=== PATIENT | female | born 1980 | race Caucasian/White ===

== ENCOUNTER → 2018-01-20 09:47 | Outpatient (CLI) | payer OTHER, SELFPAY ==
[2018-01-20 10:58] LABS: Microalbumin,Random Urine 12.6 mg/L (NO RANGE EST.); Microalbumin:Creatinine Ratio 12.6 mg/g CRE (<30 mg/g CRE)
[2018-01-20 11:16] LABS: ALB/GLOB Ratio 0.9 RATIO (0.9-2.4); AST(SGOT) 15 U/L (15-37); Alanine Aminotransfer ALT/SGPT 17 U/L (13-56); Albumin, Serum 3.5 g/dL (3.2-5.0); Alkaline Phosphatase 55 U/L (45-117); Anion Gap 8 (5-15); BUN 12 mg/dL (7-18); BUN/Creat Ratio 18.6 RATIO (10-20); Calcium,Total 8.4 mg/dL (8.5-10.1); Chloride 105 mmol/L (98-107); Cholesterol 155 mg/dL (200); Creatinine, Serum 0.65 mg/dL (0.55-1.02); EST Glomerular Filtration Rate 111 mL/min (>60); Est Glom Filt Rate - Afr Amer 134 mL/min (>60); Globulin 3.9 g/dL (2.2-4.2); Glucose 72 mg/dL (74-106); High Density Lipoprotein 85 mg/dL; Potassium 4.1 mmol/L (3.5-5.1); Protein, Total 7.4 g/dL (6.4-8.2); Sodium Level 140 mmol/L (136-145); Thyroid Stim Hormone (TSH) 1.23 uIU/mL (0.358-3.74); Triglycerides 47 mg/dL; Very Low Density Lipoprotein 9 mg/dL (5-40)
== END ==
PROVIDERS: Visit Provider Internal Medicine Endocrinology, Diabetes & Metabolism
DX: E10.9 Type 1 diabetes mellitus without complications (principal); E78.00 Pure hypercholesterolemia, unspecified; E04.0 Nontoxic diffuse goiter
CPT/HCPCS: 36415; 80053; 80061; 82043; 82570; 84443

== ENCOUNTER 2018-02-03 06:06 | Day surgery (SDC) | payer OTHER, SELFPAY ==
[2018-01-29 11:07] LABS: Hematocrit 32.5 % (37-47); Mean Corp Hgb Conc 30.8 g/gl (32-36); Mean Corpuscular Hgb 23.5 pg (27.0-32.0); Mean Corpuscular Volume 76.3 fL (81-99); Mean Platelet Vol. 9.4 fl (6.2-12.0); Platelet Count 272 K/mm3 (150-450); RBC Distribution Width CV 14.4 % (11.6-14.6); RBC Distribution Width SD 39.2 fl (35.1-43.9); Red Blood Count 4.26 M/mm3 (4.2-5.4); White Blood Count 5.4 K/mm3 (4.4-11.0)
[2018-01-29 11:08] LABS: International Normalized Ratio 1.1; Prothrombin Time (Protime)PT. 13.8 SECONDS (11.7-14.9)
[2018-01-29 11:09] LABS: Partial Thromboplast Time 33.8 Seconds (24.1-36.2)
[2018-01-29 11:13] LABS: Scan Indicated on CBC? Y/N NO
--- NOTE | 2018-02-02 21:07 | PCM.HP.BLA ---
History and Physical Date of Admission: 02/03/18 Surgical History and Physical Felicia Lopez, a 37 year old female 2 0 0 0 2, presents for HTA, Hysteroscopy and D and C on January at 7:30. -- Menorrhagia -- heavy menses x 5 years since having first child, and seems to be worsening. 37 y.o. G 2 P 2 non-smoker with LMP of 12-01-17 being heavy and lasting her average of 7 days. Reports she has been having a lot of moodiness and craziness the week prior to and the first couple days of her menses and hoping to have something to help her with the heavy bleeding and the emotions. History of BTO for control. Heavy menses which began menorrhea x 5 yrs. Felicia claims it started gradually and has been present periods worsening/symptoms worsening. It occurs during her menses and 1 week before. It is located in the vagina. Felicia characterizes the quality very geller, heavy bleeding. 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 Has Type I DM. MEDICATIONS HISTORY: Patient is also takin. insulin pump syringe 3 mL Misc 2. Rhofade 1 % topical cream, As Directed 3. Soolantra 1 % topical cream, As Directed ALLERGIES: NKDA Infections - Chicken pox Illnesses - Type I diabetes Accidents - None Hospitalizations - Childbirth, appendectomy, kidney stone removal x 2 and Type I DM age 16 Kidney stones; Review of Systems: GENERAL - Denies fever, or chills SKIN - Denies skin changes EYES - Denies visual changes EARS - Denies difficulty hearing NOSE - Denies nasal congestion or bleeding MOUTH - Denies sore throat or difficulty swallowing NECK - Denies pain or swelling RESPIRATORY - Denies shortness of breath or wheezing CARDIOVASCULAR - Denies palpitations or chest pain GASTROINTESTINAL - Denies nausea, vomiting, diarrhea, constipation GENITOURINARY - heavy menses MUSCULOSKELETAL - Denies joint or muscle pain NEUROLOGICAL - Denies localized numbness or weakness PSYCHIATRIC - Denies depression or anxiety ENDOCRINE - Denies heat or cold intolerance, weight loss or gain; has type I DM HEMATO-IMMUNOLOGIC - Denies excessive bleeding with cuts SOCIAL HISTORY: Alcohol Use - None Smoking - Never Diet - balanced Diet Lifestyle - low stress lifestyle and Exercise - minimal Seat Belt Use - always 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 MENSTRUAL HISTORY: LMP Known?- Definite Amount/Duration - 7 days, Regularity - Regular, Frequency - 30 days, LMP - 01/02/18, Age Onset Menarche - 13 PAST PREGNANCIES: Total Pregnancies - 2; Full Term Pregnancies - 2; Premature - 0; Abortions, Induced - 0; Abortions, Spontaneous - 0; Ectopics - 0; Multiple Births - 0; Living Children - 2 SURGICAL HISTORY: 1. 02/13/2013 ; Dr. Zapien 2. 08/05/2009 ; - Failed induction, 39 weeks, TYPE I DM 3. 02/23/2010 Appendectomy ; - appendicitis 4. 12/26/2002 lithotripsy ; - kidney stones 5. 01/26/2003 Lithotripsy ; - kidney stones 6. 10/28/1995 T and A PHYSICAL EXAM BP- 128/70 Sitting, Right arm, regular cuff Weight- 179.90735 lbs Height- 65.00 inch BMI:29.85 CONSTITUTIONAL - NAD, well nourished, and well developed SKIN - No rash, lesions, or ulcers HEENT - Normocephalic, PERRLA, EOMI NECK - No nodes, no nuchal rigidity and thyroid normal size and texture LYMPH NODES - Palpation of lymph nodes in neck and groins within normal limits LUNGS - CTA x2 without wheezes, crackles or rales CARDIAC - Regular rate and rhythm without rubs, murmurs, or gallops BREAST - No dominant masses, no tenderness, no axillary adenopathy, no nipple discharge, no skin changes ABDOMEN - Without hepatosplenomegaly, distention, masses, rebound, or guarding; normal bowel sounds; no hernias EXTREMITIES - No edema or calf tenderness NEUROLOGICAL - Cranial nerves II-XII grossly intact PSYCHIATRIC - A and O to time, place, person, mood and affect DETAILED PELVIC EXAM External Genital Vagina - non-tender without lesions Urethra/Urethral Meatus - non-tender Bladder - non-tender Vagina - vaginal herman are pink and moist without loss of rugae and no evidence of atropy Cervix - without cervical motion tenderness and has normal size and features without evident lesions Uterus - multiparous size 6 cm & wt 75-125 g Adnexa - clear without masses or tenderness ASSESSMENT/PLAN: 1. Menorrhagia Discussed D and C, H/S and HTA including RBAs and all questions answered.
[2018-02-03 06:32] VITALS: BP 111/70; PULSE 75; RESP 16; TEMP 36.6; O2SAT 100; BMI 28.6
[2018-02-03 07:01] LABS: Bedside Glucose 144 mg/dL (70-110)
--- NOTE | 2018-02-03 07:27 | OP.PCM_ITS ---
Operative Report Date of Procedure: 02/03/18 Surgeon: Thien Carrillo MD, FACOG Anesthesia: Darío Carrillo MD Type of anesthesia: General Endotracheal Procedure: Diagnostic Hysteroscopy, Dilation and Curettage, Hydrothermal Ablation Pre-op: Menorrhagia Post-Op: Menorrhagia Findings: 8 cm EM cavity with normal-appearing endometrium; no polyps or fibroids noted Indication: This is a 37 year old patient who has been having problems with extremely heavy menses. Conservative measures have not been helpful. Endometrial sampling was benign and pelvic ultrasound showed that ablation may be helpful. Pt has been counseled regarding the risks, benefits and alternatives of this procedure and all questions answered. She understands that only about half of patients will have amenorrhea after this procedure. Procedure: Patient taken to the operating room where after induction of general anesthesia the patient was prepped and draped in the usual sterile fashion. Bladder was drained of urine with a catheter. Anterior cervix grasped and cervix was dilated to about 17 Algerian size. Hysteroscopic hydrothermal ablation (HTA) unit was place in the cervix and the above findings were noted. HTA unit was removed and the uterus was gently curretted removing all contents. An HTA ablation cycle was then carried out at about 90 degrees Centigrade for 10 minutes with virtually no fluid loss during the procedure. After an appropriate cool down the HTA unit was removed with minimal bleeding noted. The patient tolerated the procedure well and was taken to the recovery room in satisfactory condition. Sponge, instruments and needle counts were all correct. There were no apparent complications of the surgery. Ancef 2 gms IV was given prior to the procedure. Estimated Blood Loss: Minimal Specimen to Pathology: Endometrial Curettings
--- NOTE | 2018-02-03 07:27 | PCM.DC.D&C ---
Discharge Diet: No Restrictions Discharge Activity: Return to Normal Activity, May Shower, May Take a Tub Bath May resume sexual activity in: 4 weeks Call your doctor if you observe: Fever of 101 or Higher, Inability to urinate, Inability to have a bowel movement, Using more than one pad per hour Allergies/Adverse Reactions: Allergies No Known Allergies Allergy (Verified 01/27/18 10:58) Medications to take at Discharge Insulin Aspart [Novolog] 1,000 unit CONT INF X1 01/27/18 Hydrocodone/Acetaminophen [[place] 5-325 Tablet] 1 ea PO Q4H PRN PRN 7 Days #10 tab 02/03/18 Oxymetazoline HCl [Rhofade] 30 gm TP DAILY 02/03/18 The following prescriptions were given: Hydrocodone/Acetaminophen [[place] 5-325 Tablet] 1 ea PO Q4H PRN PRN 7 Days #10 tab PRN Reason: Severe Pain (-08/06) Primary Care Physician: Care Physician,No Primary [Primary Care Provider] - Please Follow Up With: Thien Carrillo MD When: 3-4 weeks
--- NOTE | 2018-02-03 07:30 | DCINST_ITS ---
Discharge Diet: No Restrictions Discharge Activity: Return to Normal Activity, May Shower, May Take a Tub Bath May resume sexual activity in: 4 weeks Call your doctor if you observe: Fever of 101 or Higher, Inability to urinate, Inability to have a bowel movement, Using more than one pad per hour Allergies/Adverse Reactions: Allergies No Known Allergies Allergy (Verified 01/27/18 10:58) Medications to take at Discharge Insulin Aspart [Novolog] 1,000 unit CONT INF X1 01/27/18 Hydrocodone/Acetaminophen [Branch 5-325 Tablet] 1 ea PO Q4H PRN PRN 7 Days #10 tab 02/03/18 Oxymetazoline HCl [Rhofade] 30 gm TP DAILY 02/03/18 The following prescriptions were given: Hydrocodone/Acetaminophen [Branch 5-325 Tablet] 1 ea PO Q4H PRN PRN 7 Days #10 tab PRN Reason: Severe Pain (-08/06) Primary Care Physician: Care Physician,No Primary [Primary Care Provider] - Please Follow Up With: Thien Carrillo MD When: 3-4 weeks
--- NOTE | 2018-02-03 07:30 | EMB_PTH ---
PATIENT: MONET VILLARREAL LOC: [facility] [place] U#:[id number] AGE/SX: 37/F ROOM: RE02/03/[address]: Dr. Thien Carrillo MD : 1980 BED: DIS: 02/03/2018 SPEC #: [id number] RECD: 02/03/18 13:05 STATUS: ROSE CYNDY #: [id number] VERO: 02/03/18 07:[address]: Thien Carrillo DEPT: SURGICAL PATHOLOGY RECD BY: Amando Reed ENTERED: 02/03/18 13:05 SP TYPE: ENDOM BX/C MARCELO DR: No Primary Care Phys Tissues: Endometrium, NOS Procedures: Surgery Specimen Level IV HEADER OPERATION: Hysteroscopy, hydroablation, D & C PRE-OP DIAGNOSIS: Menorrhagia TISSUE SUBMITTED: Endometrial curettings MICROSCOPIC DIAGNOSIS Endometrium, curettings: Secretory endometrium. Glandular and stromal breakdown. AM:patricia 4/10/18 MICROSCOPIC DESCRIPTION Slides are reviewed. GROSS DESCRIPTION Received in fixative is one container labeled with the patient's name and designated endometrial curettings. The specimen consists of multiple fragments of hemorrhagic soft tissue mixed with blood clot that in aggregate measure 7.5 x 3 x 0.3 cm. The entire specimen is submitted in three cassettes. / SJ:rg 02/03/18 TC:5 CPT: 18149
[2018-02-03] MEDS: Cefazolin 2 GM in 0.9% Normal Saline 100 ML IV (07:32)
[2018-02-03 08:12] VITALS: BP 111/70; BP 121/76; PULSE 68; RESP 16; TEMP 36.4; O2SAT 98
[2018-02-03 08:15] VITALS: BP 111/70; BP 133/97; PULSE 68; RESP 16; O2SAT 97
[2018-02-03 08:30] VITALS: BP 111/70; BP 119/77; PULSE 73; RESP 16; O2SAT 100
[2018-02-03 08:30] LABS: Bedside Glucose 116 mg/dL (70-110)
[2018-02-03 08:41] VITALS: BP 111/70; BP 120/73; PULSE 65; RESP 16; TEMP 36.3; O2SAT 100
[2018-02-03 10:24] VITALS: BP 111/62; BP 111/70; PULSE 55; RESP 18; TEMP 36.7; O2SAT 100
== END 2018-02-03 10:33 | disposition home or self-care (01) ==
LOC: SDC 06:08 → AC 06:09
PROVIDERS: Visit Provider Obstetrics & Gynecology
PROC: 0U5B8ZZ Destruction of Endometrium, Via Natural or Artificial Opening Endoscopic (ICD-10-PCS; CPT 58563; principal; 2018-02-03 07:15)
DX: N92.0 Excessive and frequent menstruation with regular cycle (principal); E10.9 Type 1 diabetes mellitus without complications; Z96.41 Presence of insulin pump (external) (internal); Z98.51 Tubal ligation status
CPT/HCPCS: 58563; 36415; 82962; 85027; 85610; 85730; 86850; 86900; 88305; J7120; J2405

== ENCOUNTER → 2019-03-10 09:17 | Outpatient (CLI) | payer OTHER, SELFPAY ==
[2019-03-10 10:21] LABS: Hematocrit 40.3 % (37-47); Hemoglobin 13.8 g/dl (12.0-15.0); Lymphocyte % 28.1 % (19-41); Mean Corp Hgb Conc 34.2 g/gl (32-36); Mean Corpuscular Hgb 30.8 pg (27.0-32.0); Mean Platelet Vol. 9.7 fl (6.2-12.0); Monocyte% 8.6 % (0-10); Platelet Count 333 K/mm3 (150-450); RBC Distribution Width CV 12.6 % (11.6-14.6); Red Blood Count 4.48 M/mm3 (4.2-5.4); White Blood Count 5.6 K/mm3 (4.4-11.0)
[2019-03-10 10:22] LABS: Absolute Lymphocyte Count 1.56 X10^3/ul (0.83-4.51); Absolute Neutrophil Count 3.4 X10^3/uL (2.0-7.7); Basophil# 0.03 X10^3/uL; Basophil% 0.5 % (0-1); Eosinophil# 0.09 X10^3/uL; Eosinophils% 1.6 % (0-5); Lymphocyte # 1.56 X10^3/ul (4.0); Monocyte# 0.48 X10^3/uL; Neutrophil # 3.38 X10^3/uL (2.7-7.7)
[2019-03-10 10:25] LABS: POSITIVE COUNT NO; POSITIVE DIFFERENTIAL NO; POSITIVE MORPHOLOGY NO
[2019-03-10 10:45] LABS: Microalbumin,Random Urine < 5.0 mg/L (NO RANGE EST.)
[2019-03-10 11:00] LABS: Vitamin B12 228 pg/mL (211-911)
[2019-03-10 11:14] LABS: ALB/GLOB Ratio 1.1 RATIO (0.9-2.4); AST(SGOT) 16 U/L (15-37); Alanine Aminotransfer ALT/SGPT 18 U/L (13-56); Albumin, Serum 3.9 g/dL (3.2-5.0); Alkaline Phosphatase 75 U/L (45-117); Anion Gap 6 (5-15); BUN 10 mg/dL (7-18); BUN/Creat Ratio 14.4 RATIO (10-20); Calcium,Total 8.4 mg/dL (8.5-10.1); Chloride 104 mmol/L (98-107); Cholesterol 161 mg/dL (200); EST Glomerular Filtration Rate 101 mL/min (>60); Est Glom Filt Rate - Afr Amer 122 mL/min (>60); Globulin 3.7 g/dL (2.2-4.2); Glucose 72 mg/dL (74-106); High Density Lipoprotein 77 mg/dL; Protein, Total 7.6 g/dL (6.4-8.2); Sodium Level 137 mmol/L (136-145); Thyroid Stim Hormone (TSH) 0.84 uIU/mL (0.358-3.74); Triglycerides 61 mg/dL; Very Low Density Lipoprotein 12 mg/dL (5-40)
== END ==
PROVIDERS: Referring Provider Internal Medicine Endocrinology, Diabetes & Metabolism; Visit Provider Internal Medicine Endocrinology, Diabetes & Metabolism
DX: E10.9 Type 1 diabetes mellitus without complications (principal); E78.2 Mixed hyperlipidemia; E04.0 Nontoxic diffuse goiter; D64.9 Anemia, unspecified; E53.9 Vitamin B deficiency, unspecified
CPT/HCPCS: 36415; 80053; 80061; 82043; 82570; 82607; 84443; 85025

== ENCOUNTER → 2020-03-29 06:58 | Outpatient (CLI) | payer OTHER, SELFPAY ==
[2020-03-29 08:06] LABS: Microalbumin,Random Urine 8.6 mg/L (NO RANGE EST.)
[2020-03-29 08:12] LABS: ALB/GLOB Ratio 0.9 RATIO (0.9-2.4); AST(SGOT) 19 U/L (15-37); Alanine Aminotransfer ALT/SGPT 24 U/L (13-56); Albumin, Serum 3.6 g/dL (3.2-5.0); Alkaline Phosphatase 62 U/L (45-117); Anion Gap 8 (5-15); BUN 14 mg/dL (7-18); BUN/Creat Ratio 20.6 RATIO (10-20); Calcium,Total 8.8 mg/dL (8.5-10.1); Chloride 103 mmol/L (98-107); Cholesterol 180 mg/dL (200); Creatinine, Serum 0.68 mg/dL (0.55-1.02); EST Glomerular Filtration Rate 103 mL/min (>60); Est Glom Filt Rate - Afr Amer 125 mL/min (>60); Globulin 4.1 g/dL (2.2-4.2); Glucose 127 mg/dL (74-106); High Density Lipoprotein 73 mg/dL; Protein, Total 7.7 g/dL (6.4-8.2); Sodium Level 138 mmol/L (136-145); Thyroid Stim Hormone (TSH) 1.71 uIU/mL (0.358-3.74); Triglycerides 74 mg/dL; Very Low Density Lipoprotein 15 mg/dL (5-40)
== END ==
PROVIDERS: Referring Provider Internal Medicine Endocrinology, Diabetes & Metabolism; Visit Provider Internal Medicine Endocrinology, Diabetes & Metabolism
DX: E10.9 Type 1 diabetes mellitus without complications (principal); E78.2 Mixed hyperlipidemia; E04.0 Nontoxic diffuse goiter
CPT/HCPCS: 36415; 80053; 80061; 82043; 82570; 84443

== ENCOUNTER 2020-06-16 12:40 | Emergency (ER) | payer OTHER, SELFPAY ==
[2020-06-16 12:42] VITALS: BP 142/98; PULSE 80; RESP 16; TEMP 36.3; O2SAT 98; BMI 29.1
--- NOTE | 2020-06-16 13:44 | US_ITS ---
STUDY: ABDOMINAL ULTRASOUND - RIGHT UPPER QUADRANT REASON FOR VISIT: Female, 40 years old RUQ PAIN TECHNIQUE: Ultrasound evaluation of the right upper quadrant was performed with real-time and static pavon-scale imaging. TECHNICAL QUALITY: Adequate. COMPARISON: None. FINDINGS: Liver: The liver measures 16.2 cm. There is normal echogenicity of the liver. The bile ducts are within normal limits. There is hepatic color flow. The direction of portal flow is hepatopetal. There is no demonstrated mass lesion. Gallbladder: Normal distended gallbladder. The gallbladder wall measures 2 mm. There is a negative sonographic Glasgow''s sign. There is no pericholecystic fluid. There are no gallstones. Common Bile Duct (C.B.D.): The common bile duct measures 3 mm. Pancreas: Normal size of the head, body and tail of the pancreas. There is normal echogenicity of the pancreas. There is no demonstrated pancreatic mass or cyst. Right Kidney: Normal size of the right kidney. The right kidney measures 11.2 cm. Normal renal cortex. The right cortex measures 1.3 cm. There is no demonstrated renal mass or cyst. There is no right hydronephrosis. US/Gallbladder IMPRESSION: Normal right upper quadrant ultrasound examination. Electronically Signed: Quinton Thompson MD at 14:53 EDT Tel , Service support ,
[2020-06-16] MEDS: Ondansetron 4 MG/2 ML Vial IV (14:11)
[2020-06-16 14:18] LABS: Absolute Lymphocyte Count 1.29 X10^3/uL (0.83-4.51); Basophil# 0.03 X10^3/uL; Basophil% 0.7 % (0-1); Eosinophil# 0.18 X10^3/uL; Eosinophils% 4.5 % (0-5); Hematocrit 40.2 % (37-47); Hemoglobin 13.8 g/dL (12.0-15.0); Lymphocyte # 1.29 X10^3/ul (4.0); Mean Corp Hgb Conc 34.3 g/dL (32-36); Mean Corpuscular Hgb 31.3 pg (27.0-32.0); Mean Corpuscular Volume 91.2 fL (81-99); Mean Platelet Vol. 9.2 fl (6.2-12.0); Monocyte# 0.54 X10^3/uL; Monocyte% 13.4 % (0-10); NRBC Flagged by Analyzer 0 % (0-5); Neutrophil # 1.98 X10^3/uL (2.7-7.7); Neutrophil % 49.2 % (47-70); Platelet Count 299 K/mm3 (150-450); RBC Distribution Width CV 12.1 % (11.6-14.6); RBC Distribution Width SD 40.4 fl (35.1-43.9); Red Blood Count 4.41 M/mm3 (4.2-5.4)
[2020-06-16 14:24] LABS: Internal QC Validated? YES +Cl - CLEAR BKGD; Pregnancy, Serum, hCG Quali. NEGATIVE Negative
[2020-06-16 14:30] LABS: ALB/GLOB Ratio 0.9 RATIO (0.9-2.4); AST(SGOT) 20 U/L (15-37); Alanine Aminotransfer ALT/SGPT 21 U/L (13-56); Albumin, Serum 3.5 g/dL (3.2-5.0); Alkaline Phosphatase 68 U/L (45-117); Anion Gap 2 (5-15); BUN 7 mg/dL (7-18); BUN/Creat Ratio 9.1 RATIO (10-20); Calcium,Total 8.6 mg/dL (8.5-10.1); Chloride 107 mmol/L (98-107); Creatinine, Serum 0.77 mg/dL (0.55-1.02); EST Glomerular Filtration Rate 90 mL/min (>60); Est Glom Filt Rate - Afr Amer 108 mL/min (>60); Estimated Creatinine Clearance 89.14 ml/min; Globulin 3.8 g/dL (2.2-4.2); Glucose 104 mg/dL (74-106); Lipase 65 U/L (73-393); Potassium 3.9 mmol/L (3.5-5.1); Protein, Total 7.3 g/dL (6.4-8.2); Sodium Level 139 mmol/L (136-145)
--- NOTE | 2020-06-16 15:51 | ED.DEP ---
ED Disposition - Plan for ED Patient: Instructions: ED Abdominal Pain Unkn Cause Fem Prescriptions: Dicyclomine HCl [Bentyl] 20 mg PO TIDAC #20 cap Prescription Printed Famotidine [Pepcid] 20 mg PO BID #28 tab Prescription Printed Ondansetron [Zofran Odt] 4 mg PO Q8H PRN PRN #10 tab PRN Reason: Nausea Prescription Printed Referrals: Franco Sesay MD [NON-STAFF] -
--- NOTE | 2020-06-16 15:57 | ED.DCSUM_ITS ---
- ER Visit Summary Date of Service: 06/16/20 Chief Complaint: Abdominal pain History of Present Illness: The patient is a 40 F presenting with abdominal pain. She states this started approximately 5 days ago. She has had intermittent abdominal pain. She states it is worse with eating. She has nausea with no vomiting. She also has had mild diarrhea. Denies blood in her stool. Denies urinary complaints. Denies fever. Denies cough. Denies known exposure to COVID. She has history of previous appendectomy. Physical Examination: Vitals are stable. Patient is afebrile. Alert no acute distress. HEENT exam is unremarkable. Neck is supple. Lungs are clear and equal bilaterally. Heart is regular rate and rhythm. Abdomen is soft mild right upper quadrant tenderness with no guarding or rebound Extremities are unremarkable. Skin is warm and dry. No focal neurologic deficit. Remainder of exam is unremarkable. Emergency Department Course and Treatment: Patient was given Zofran IV. CBC, chemistries unremarkable. Liver lipase are normal. hCG negative. Right upper quadrant ultrasound shows normal right upper quadrant ultrasound examination. On reevaluation, she states her pain is currently resolved. She states it comes in waves. She is given prescription for Zofran, Pepcid, Bentyl. She is given Dr. Sesay environmental protection economist for no doctor for follow-up. Advised return to ED for worsening complaints. Due to her diarrhea she is concerned this could be early COVID. COVID was ordered as a send out test and is pending. Disposition: Discharge home Impression: Abdominal pain This note was generated with Xdynia dictation software. It may contain incorrect words, spelling, and punctuation that were not noted in review of the chart prior to signing ED Disposition - Plan for ED Patient: Disposition: Home or Assisted Living Instructions: ED Abdominal Pain Unkn Cause Fem Prescriptions: Dicyclomine HCl [Bentyl] 20 mg PO TIDAC #20 cap Prescription Printed Famotidine [Pepcid] 20 mg PO BID #28 tab Prescription Printed Ondansetron [Zofran Odt] 4 mg PO Q8H PRN PRN #10 tab PRN Reason: Nausea Prescription Printed Referrals: Franco Sesay MD [NON-STAFF] -
[2020-06-16 16:24] VITALS: RESP 18
== END 2020-06-16 16:31 | disposition home or self-care (01) ==
LOC: ED 13:48
PROVIDERS: Emergency Provider Emergency Medicine
DX: R10.11 Right upper quadrant pain (principal); R19.7 Diarrhea, unspecified; E11.9 Type 2 diabetes mellitus without complications
CPT/HCPCS: 76705; 80053; 83690; 84703; 85025; 87635; 94799; 96374; 99283; A4216; J2405; U0003

== ENCOUNTER → 2020-06-22 13:22 | Outpatient (CLI) | payer OTHER, SELFPAY ==
[2020-06-21 16:34] VITALS: BMI 29.1
== END ==
PROVIDERS: PCP Internal Medicine; Referring Provider Nurse Practitioner Family; Visit Provider Nurse Practitioner Family
DX: R19.7 Diarrhea, unspecified (principal)
CPT/HCPCS: 83630; 87506

== ENCOUNTER → 2020-10-05 | Outpatient (CLI) | payer OTHER, SELFPAY ==
[2020-07-26 10:37] VITALS: BMI 29.1
[2020-10-08 13:30] LABS: HPV Reflexed? NOT INDICATED
== END | disposition home or self-care (01) ==
LOC: LABSPEC 10:46
PROVIDERS: PCP Internal Medicine; Visit Provider Obstetrics & Gynecology
DX: Z12.4 Encounter for screening for malignant neoplasm of cervix (principal)
CPT/HCPCS: 88175; G0145

== ENCOUNTER → 2020-11-07 | Outpatient (CLI) | payer OTHER, SELFPAY ==
--- NOTE | 2020-11-07 08:45 | SOF_PTH ---
PATIENT: MONET VILLARREAL LOC: [facility] U#:[id number] AGE/SX: 40/F ROOM: RE11/07/[address]: Dr. Neymar Morrow MD : 1980 BED: DIS: 11/07/2020 SPEC #: [id number] RECD: 11/07/20 10:33 STATUS: ROSE REPeter #: [id number] VERO: 11/07/20 08:[address]: Neymar Morrow DEPT: SURGICAL PATHOLOGY RECD BY: Meg Rivas ENTERED: 11/07/20 12:59 SP TYPE: SOFT TISS OTHR DR: Dr. Stephanie Fuentes MD Tissues: Subcutaneous tissue of inguinal region Procedures: Surgery Specimen Level IV HEADER OPERATION: Excision of groin mass left side PRE-OP DIAGNOSIS: Left groin mass TISSUE SUBMITTED: Left groin mass (subcutaneous mass left upper inner thigh) MICROSCOPIC DIAGNOSIS Left groin mass, excision: Mature adipose tissue consistent with lipoma. Skin with no pathologic change. AM:patricia 11/08/2020 MICROSCOPIC DESCRIPTION Slides are reviewed. GROSS DESCRIPTION Received in fixative is one container labeled with the patient's name and designated subcutaneous mass. The specimen consists of a piece of skin with underlying adipose tissue. The skin piece measures 2 x 1 cm and the underlying adipose tissue measures 3 x 1.5 x 1.5 cm. Also present in the container is a piece of yellow adipose tissue measuring 3.5 x 3 x 1.5 cm. Sections reveal yellow adipose cut surfaces without area of hemorrhage necrosis or cystic degeneration. Metalsmith sections are submitted in two cassettes. / ANDREWS:patricia 11/07/20 TC:1 CPT: 51819
== END | disposition home or self-care (01) ==
LOC: LABSPEC 10:47
PROVIDERS: PCP Internal Medicine; Referring Provider Surgery; Visit Provider Surgery
DX: R22.42 Localized swelling, mass and lump, left lower limb (principal)
CPT/HCPCS: 88305

== ENCOUNTER → 2020-11-29 15:06 | Outpatient (CLI) | payer OTHER, SELFPAY ==
[2020-11-29 14:15] VITALS: BMI 28.5
[2020-11-29 16:49] LABS: Absolute Lymphocyte Count 1.94 X10^3/uL (0.83-4.51); Absolute Neutrophil Count 3.3 X10^3/uL (2.0-7.7); Basophil# 0.03 X10^3/uL; Basophil% 0.5 % (0-1); Eosinophil# 0.08 X10^3/uL; Eosinophils% 1.4 % (0-5); Hematocrit 39.3 % (37-47); Hemoglobin 13.2 g/dL (12.0-15.0); Lymphocyte # 1.94 X10^3/ul (4.0); Mean Corp Hgb Conc 33.6 g/dL (32-36); Mean Corpuscular Hgb 30.7 pg (27.0-32.0); Mean Corpuscular Volume 91.4 fL (81-99); Mean Platelet Vol. 9.3 fl (6.2-12.0); Monocyte# 0.49 X10^3/uL; Monocyte% 8.3 % (0-10); NRBC Flagged by Analyzer 0 % (0-5); Neutrophil # 3.31 X10^3/uL (2.7-7.7); Neutrophil % 56.5 % (47-70); Platelet Count 323 K/mm3 (150-450); RBC Distribution Width CV 12.2 % (11.6-14.6); RBC Distribution Width SD 40.6 fl (35.1-43.9); White Blood Count 5.9 K/mm3 (4.4-11.0)
[2020-11-29 17:18] LABS: AST(SGOT) 14 U/L (15-37); Alanine Aminotransfer ALT/SGPT 20 U/L (13-56); Alkaline Phosphatase 71 U/L (45-117); Anion Gap 5 (5-15); BUN 14 mg/dL (7-18); BUN/Creat Ratio 18.2 RATIO (10-20); Calcium,Total 9.1 mg/dL (8.5-10.1); Chloride 102 mmol/L (98-107); Creatinine, Serum 0.77 mg/dL (0.55-1.02); EST Glomerular Filtration Rate 89 mL/min (>60); Est Glom Filt Rate - Afr Amer 108 mL/min (>60); Free T3 2.1 pg/mL (2.18-3.98); Globulin 3.9 g/dL (2.2-4.2); Glucose 172 mg/dL (74-106); Protein, Total 7.9 g/dL (6.4-8.2); Sodium Level 135 mmol/L (136-145); T4 Free Direct 1.11 ng/dL (0.76-1.46); Thyroid Stim Hormone (TSH) 1.01 uIU/mL (0.358-3.74)
[2020-11-30 08:51] LABS: SARS-COV-2 TOTAL ABS Reactive (Nonreactive); Vitamin D,25 Hydroxy 16.9 ng/mL
== END ==
PROVIDERS: PCP Internal Medicine; Referring Provider Internal Medicine; Visit Provider Internal Medicine
DX: F41.9 Anxiety disorder, unspecified (principal); R41.3 Other amnesia; U07.1 COVID-19
CPT/HCPCS: 36415; 80053; 82306; 84439; 84443; 84481; 85025; 86769

== ENCOUNTER → 2021-04-18 11:31 | Outpatient (CLI) | payer OTHER, SELFPAY ==
[2020-11-29 14:15] VITALS: BMI 28.5
[2021-04-18 12:46] LABS: Microalbumin,Random Urine 5.8 mg/L (NO RANGE EST.); Microalbumin:Creatinine Ratio 8.2 mg/g CRE (<30 mg/g CRE)
[2021-04-18 13:22] LABS: AST(SGOT) 12 U/L (15-37); Alanine Aminotransfer ALT/SGPT 15 U/L (13-56); Anion Gap 7 (5-15); BUN 11 mg/dL (7-18); BUN/Creat Ratio 13.8 RATIO (10-20); Calcium,Total 8.7 mg/dL (8.5-10.1); Chloride 101 mmol/L (98-107); Cholesterol 150 mg/dL (200); EST Glomerular Filtration Rate 85 mL/min (>60); Est Glom Filt Rate - Afr Amer 103 mL/min (>60); Glucose 261 mg/dL (74-106); High Density Lipoprotein 69 mg/dL; Potassium 4.1 mmol/L (3.5-5.1); Sodium Level 135 mmol/L (136-145); Thyroid Stim Hormone (TSH) 1.13 uIU/mL (0.358-3.74); Triglycerides 55 mg/dL; Very Low Density Lipoprotein 11 mg/dL (5-40)
== END ==
PROVIDERS: PCP Internal Medicine; Visit Provider Nurse Practitioner Adult Health
DX: E10.9 Type 1 diabetes mellitus without complications (principal); E78.00 Pure hypercholesterolemia, unspecified; E04.0 Nontoxic diffuse goiter
CPT/HCPCS: 36415; 80048; 80061; 82043; 82570; 84443; 84450; 84460

== ENCOUNTER → 2021-11-15 07:17 | Outpatient (CLI) | payer OTHER, SELFPAY ==
[2021-11-15 08:47] LABS: AST(SGOT) 18 U/L (15-37); Alanine Aminotransfer ALT/SGPT 30 U/L (13-56); Anion Gap 6 (5-15); BUN 12 mg/dL (7-18); Calcium,Total 8.7 mg/dL (8.5-10.1); Chloride 105 mmol/L (98-107); Cholesterol 177 mg/dL (200); Creatinine, Serum 0.71 mg/dL (0.55-1.02); EST Glomerular Filtration Rate 98 mL/min (>60); Est Glom Filt Rate - Afr Amer 118 mL/min (>60); Glucose 119 mg/dL (74-106); High Density Lipoprotein 85 mg/dL; Potassium 4.3 mmol/L (3.5-5.1); Sodium Level 139 mmol/L (136-145); Thyroid Stim Hormone (TSH) 1.78 uIU/mL (0.358-3.74); Triglycerides 68 mg/dL; Very Low Density Lipoprotein 14 mg/dL (5-40)
[2021-11-15 09:50] LABS: Hemoglobin A1c 6.8 % (3.8-5.6)
== END ==
PROVIDERS: PCP Internal Medicine
DX: Z46.81 Encounter for fitting and adjustment of insulin pump (principal); E10.9 Type 1 diabetes mellitus without complications; E78.00 Pure hypercholesterolemia, unspecified; E04.0 Nontoxic diffuse goiter
CPT/HCPCS: 36415; 80048; 80061; 83036; 84443; 84450; 84460

== ENCOUNTER 2022-07-30 10:08 | Emergency (ER) | payer OTHER, SELFPAY ==
[2022-07-30 10:09] VITALS: BP 151/91; PULSE 85; RESP 16; TEMP 36.6; O2SAT 100; BMI 32.1
--- NOTE | 2022-07-30 10:35 | VDLE_ITS ---
Reason For Study: Pain Procedure LEFT This is a venous duplex using B-mode, color GSV is normal. flow and spectral Doppler. CFV is compressible, spontaneous, phasic, Exam performed portable in ED. competent, and demonstrates normal A preliminary report was called and/or faxed augmentation. to [facility]. FV is compressible, spontaneous, phasic, competent and demonstrates normal augmentation. POP V is compressible, spontaneous, phasic, competent and demonstrates normal augmentation. T/P Trunk is compressible. PTV is compressible. LT PerV is compressible. VL/Venous Duplex US, Unilateral Interpretation Summary There is no evidence of left lower extremity deep vein thrombosis. Left great s aphenous vein appears patent and compressible segmentally. Ordering Physician: Christiano Ambrose Referring Physician: Blair Ivy Performed By: Yoon Peng RVT
--- NOTE | 2022-07-30 10:48 | ED.VIS.LOWEX ---
HPI History of Present Illness Chief Complaint: Lower Extremity Injury Narrative Narrative: Patient with past medical history of type 1 diabetes, anxiety, presents from urgent care with concern for DVT. She states she has been having pain in her calf for the last few weeks. While she denies any direct trauma, she states that she was working out on a rowing machine and began having calf pain mainly. It now hurts when she stands or tried to put her heel down. She denies any chest pain or shortness of breath but since the area has been swollen. She has been taking ibuprofen without relief of her symptoms. Pain is worse with walking and weightbearing and relieved by nothing. She went to the urgent care center today who sent her to the emergency department for ultrasound examination with concern for DVT of her calf. No erythema or redness noticed by patient. [facility] Medical History Bilateral lower extremity edema Chronic low back pain Insomnia Insulin pump in place Left groin mass Obesity Type 1 diabetes Home Medications buspirone 15 mg tablet 15 mg PO BID #180 tabs 03/13/22 [Rx Last Taken Unknown] venlafaxine 37.5 mg capsule,extended release 24 hr 37.5 mg PO DAILY #30 caps 04/26/22 [Rx Last Taken Unknown] venlafaxine 75 mg capsule,extended release 24 hr 75 mg PO QHS #30 caps 04/26/22 [Rx Last Taken Unknown] carboxymethylcellulose-citric acid 0.75 gram capsule (Plenity) 3 cap PO BID #540 caps 06/28/22 [Rx Last Taken Unknown] escitalopram oxalate 5 mg tablet (Lexapro) 5 mg PO DAILY #90 tabs 06/28/22 [Rx Last Taken Unknown] insulin aspart U-100 100 unit/mL subcutaneous solution 100 unit continuous subcutaneous infusion .continuous #90 mL 06/28/22 [Rx Last Taken Unknown] Allergy/AdvReac Type Severity Reaction Status Date / Time No Known Allergies Allergy Verified 07/30/22 10:12 Family History Father Thyroid disorder Other Negative family history Surgical History S/P appendectomy S/P extracorporeal shock wave therapy Social History Smoking Status: Never smoker alcohol intake: never substance use type: does not use frequency: 3-4 times per week seatbelt use: always ROS ROS ED ROS Narrative Constitutional: No fever, no chills. HEENT: No sore throat. No neck pain. No loss of vision. No rhinorrhea. Cardiovascular: No chest pain. No palpitations. No pedal edema. Respiratory: No cough, no shortness of breath. Abdominal: No abdominal pain. No nausea. No vomiting. Genitourinary: No dysuria. No hematuria. Musculoskeletal: Left mid calf pain, and reported swelling. Worse with dorsiflexion of foot, walking, and weightbearing. No arthralgias. Neurologic: No headaches. No dizziness. No lightheadedness. Skin: No rash. No change in color. Psychiatric: No depression. No anxiety. EXAM Physical Exam Narrative Exam Narrative: Afebrile. Vital signs noted. HEENT: Normocephalic. Atraumatic. PERRL, EOMI. Neck soft and supple. No point tenderness or step off. Cardiovascular: Regular rate and rhythm. No murmurs, rubs, or gallops appreciated. Respiratory: No tachypnea. Lungs clear to auscultation bilaterally. Gastrointestinal: Abdomen soft, nontender, with normoactive bowel sounds. No rebound or guarding. Neurological: Awake. Alert. Nonfocal, nonlateralizing. Skin: No rash. Normal color. No pallor. Musculoskeletal: No pedal edema. Positive tenderness to palpation mid left calf/gastrocnemius area. Neurovascular intact distally with palpable dorsalis pedis pulse. No palpable Achilles tendon deficit. No noted erythema or palpable cord. Full range of motion extremities. Const Vital Signs: 07/30/22 10:09 Temperature 97.8 F Temperature Source Temporal Pulse Rate 85 Respiratory Rate 16 Blood Pressure 151/91 H Blood Pressure Mean 111 Pulse Ox 100 Oxygen Delivery Method Room Air MDM MDM MDM Narrative Medical decision making narrative: I do feel that she may have more of a muscle strain/tear of her gastrocnemius. Regardless, I did discuss with her DVTs below the calf. Ultrasound was obtained to rule out DVT. Her preliminary report of her DVT ultrasound is negative for deep venous thrombosis. At this point in time, Luis Manuel wrap was applied to her left calf. She is given crutches as she states it is difficult for her to weight-bear. I feel she be discharged safely home with follow-up as I do feel this is more of a gastrocnemius tear versus strain. She will take [id number] analgesics and follow-up with her primary care provider. Return instructions to the emergency department were reviewed. Disposition is discharged home in stable condition. Discharge Plan Triage Chief Complaint: Lower Extremity Injury ED Provider: Christiano Ambrose Dx/Rx/DC Orders Clinical Impression: Gastrocnemius strain, left, Pain of left calf Instructions: ED Bandage Elastic Wrap, ED Muscle Strain, Extremity Prescriptions: No Action buspirone 15 mg tablet 15 mg PO BID Qty: 180 5RF venlafaxine 37.5 mg capsule,extended release 24hr 37.5 mg PO DAILY Qty: 30 0RF venlafaxine 75 mg capsule,extended release 24hr 75 mg PO QHS Qty: 30 3RF insulin aspart U-100 100 unit/mL solution 100 unit continuous subcutaneous infusion .continuous Qty: 90 1RF Plenity 0.75 gram capsule 3 cap PO BID Qty: 540 3RF Rx Instructions: administer before lunch and evening meal/dinner escitalopram oxalate [Lexapro] 5 mg tablet 5 mg PO DAILY Qty: 90 3RF Primary Care Provider: Blair Ivy NP Referrals: Blair Ivy NP, GROUP FITNESS INSTRUCTOR-C [Primary Care Provider] - 1 Week Disposition Disposition: Home, Self Care
[2022-07-30 11:54] VITALS: BP 145/87; PULSE 80; RESP 16; O2SAT 99
== END 2022-07-30 11:55 | disposition home or self-care (01) ==
PROVIDERS: Emergency Provider Emergency Medicine; PCP Nurse Practitioner Family; Visit Provider Emergency Medicine
DX: S86.112A Strain of other muscle(s) and tendon(s) of posterior muscle group at lower leg level, left leg, initial encounter (principal); E10.9 Type 1 diabetes mellitus without complications; Z79.4 Long term (current) use of insulin; F41.9 Anxiety disorder, unspecified; M79.662 Pain in left lower leg; Z79.899 Other long term (current) drug therapy; X58.XXXA Exposure to other specified factors, initial encounter
CPT/HCPCS: 93971; 99282

== ENCOUNTER → 2022-10-04 | Outpatient (CLI) | payer OTHER, SELFPAY ==
[2022-10-04 09:45] LABS: Anion Gap 5 (5-15); BUN 13 mg/dL (7-18); BUN/Creat Ratio 17.8 RATIO (10-20); Calcium,Total 9.1 mg/dL (8.5-10.1); Chloride 103 mmol/L (98-107); Creatinine, Serum 0.73 mg/dL (0.55-1.02); EST Glomerular Filtration Rate 94 mL/min (>60); Est Glom Filt Rate - Afr Amer 113 mL/min (>60); Glucose 172 mg/dL (74-106); Sodium Level 137 mmol/L (136-145)
== END | disposition home or self-care (01) ==
LOC: LAB 08:07
PROVIDERS: PCP Nurse Practitioner Family; Visit Provider Nurse Practitioner Family
DX: I10 Essential (primary) hypertension (principal)
CPT/HCPCS: 36415; 80048

== ENCOUNTER → 2024-02-08 | Outpatient (CLI) | payer OTHER, SELFPAY ==
[2024-02-08 12:18] LABS: Basophil# 0.05 X10^3/uL; Basophil% 0.8 % (0-1); Eosinophil# 0.07 X10^3/uL; Eosinophils% 1.1 % (0-5); Hematocrit 42.7 % (37-47); Hemoglobin 14.5 g/dL (12.0-15.0); Mean Corpuscular Hgb 29.7 pg (27.0-32.0); Mean Corpuscular Volume 87.5 fL (81-99); Mean Platelet Vol. 9.1 fl (6.2-12.0); Monocyte% 7.8 % (0-10); NRBC Flagged by Analyzer 0 % (0-5); Neutrophil # 3.98 X10^3/uL (2.7-7.7); Platelet Count 344 K/mm3 (150-450); RBC Distribution Width CV 11.9 % (11.6-14.6); RBC Distribution Width SD 38.1 fl (35.1-43.9); Red Blood Count 4.88 M/mm3 (4.2-5.4); White Blood Count 6.4 K/mm3 (4.4-11.0)
[2024-02-08 12:52] LABS: ALB/GLOB Ratio 0.9 RATIO (0.9-2.4); AST(SGOT) 15 U/L (15-37); Alanine Aminotransfer ALT/SGPT 18 U/L (13-56); Albumin, Serum 3.9 g/dL (3.2-5.0); Alkaline Phosphatase 80 U/L (45-117); Anion Gap 4 (5-15); BUN 10 mg/dL (7-18); BUN/Creat Ratio 12.5 RATIO (10-20); Calcium,Total 9.3 mg/dL (8.5-10.1); Chloride 106 mmol/L (98-107); Cholesterol 196 mg/dL (200); EST Glomerular Filtration Rate 84 mL/min (>60); Est Glom Filt Rate - Afr Amer 102 mL/min (>60); Globulin 4.3 g/dL (2.2-4.2); Glucose 99 mg/dL (74-106); High Density Lipoprotein 74 mg/dL; Potassium 4.3 mmol/L (3.5-5.1); Protein, Total 8.2 g/dL (6.4-8.2); Sodium Level 136 mmol/L (136-145); T4 Free Direct 1.08 ng/dL (0.76-1.46); Thyroid Stim Hormone (TSH) 1.35 uIU/mL (0.358-3.74); Triglycerides 70 mg/dL; Very Low Density Lipoprotein 14 mg/dL (5-40)
[2024-02-08 12:53] LABS: Hemoglobin A1c 7.2 % (3.8-5.6)
== END | disposition home or self-care (01) ==
PROVIDERS: PCP Nurse Practitioner; Referring Provider Nurse Practitioner; Visit Provider Nurse Practitioner
DX: I10 Essential (primary) hypertension (principal); E10.9 Type 1 diabetes mellitus without complications; R60.0 Localized edema; Z96.41 Presence of insulin pump (external) (internal)
CPT/HCPCS: 36415; 80053; 80061; 83036; 84439; 84443; 85025